=== PATIENT | male | born 1950 | race Caucasian/White ===

== ENCOUNTER → 2018-11-06 | Outpatient (CLI) | payer BC ==
[~2018-11-06] MED LIST: PROHANCE 279.3MG/ML 15ML VIAL (A9576) As Ordered ONE; PROHANCE 279.3MG/ML 5ML VIAL (A9576) As Ordered ONE
--- NOTE | 2018-11-06 10:14 | REP ---
MRI lumbar spine without and with IV gadolinium: History: Low back pain. History of lumbar fusion and laminectomy. Technique: Sagittal and axial T1 and T2-weighted scans are acquired in the usual fashion with and without fat saturation. Sequences include spin echo, turbo spin-echo, and STIR imaging sequences. Metal artifact reduction software was utilized. The gadolinium enhancement dose is 16 ml of intravenous ProHance. No comparison study. Findings: Transpedicular screws are noted in place on the left side at L4 and L5 and bilateral posterior element bone graft fusion has been performed. At the L4-5 level, there is no evidence of disc protrusion. There is mild right-sided foraminal narrowing from facet hypertrophy and disc bulging. Canal size is borderline. At L5-S1, there is minimal diffuse disc bulging. Right-sided foraminal narrowing is seen due to facet hypertrophy mild in degree. No central canal stenosis is seen. At L3-4, there is degenerative narrowing of the disc space with posterior disc bulging diffusely. This indents the ventral margin of the thecal sac. The canal is developmentally somewhat small and there is moderate central canal stenosis due to these factors in addition to facet hypertrophy and ligamentum flavum hypertrophy. The AP dimension of the thecal sac at this level is 8 mm. The thecal sac is significantly widened from right to left as well and CSF signal intensity is effaced from the thecal sac on T2-weighted scans. There is significant bilateral neural foraminal narrowing at L3-4 as well. At L2-3, there is moderate to severe central canal stenosis due to diffuse disc bulging, developmentally short pedicles, ligamentum flavum hypertrophy, and mild facet hypertrophy. The AP dimension of the thecal sac at this level measures 6 mm. CSF signal intensity is effaced from the thecal sac on T2-weighted scans. There is mild bilateral foraminal narrowing due to facet hypertrophy and disc bulging. There is also a 3 mm degenerative retrolisthesis at L2-3. At L1-2, there is diffuse posterior disc bulging. A degenerative 3 mm retrolisthesis is also present at L1-2. The disc is quite narrowed in vertical height. There is mild central canal stenosis at L1-2. Mid sagittal AP dimension of the thecal sac is 7.6 mm. There is minimal ligamentum flavum and facet hypertrophy. No definite neural foraminal narrowing is seen. At T12-L1, there is moderate diffuse disc bulging. This contacts the ventral margin of the cauda equina. The tip of the conus is seen at this level. There is also diffuse bulging at T11-12. No extra vertebral abnormality is appreciated. Post gadolinium enhanced imaging shows enhancement associated with degenerative disc bony changes. No other significant gadolinium enhancement is seen. Impression: Advanced degenerative spondylosis changes as above with multilevel central canal stenosis and foraminal narrowing. Status post fusion procedure L4-5. The central canal stenosis is most pronounced at L2-3 and L3-4. Electronically Signed by Wali Walters MD 11/06/2018 10:44 A
== END ==
LOC: M RAD 07:49
DX: M54.5 Low back pain (principal); Z98.1 Arthrodesis status

== ENCOUNTER → 2021-10-28 | Outpatient (CLI) | payer MEDICARE, BC | LOC: M RAD 16:48 | PROVIDERS: ATTEND Family Medicine | DX: R05.9 Cough, unspecified (principal) ==